=== PATIENT | female | born 1945 | race Caucasian/White ===

== ENCOUNTER 2021-09-12 09:13 | Outpatient (CLI) | payer MEDICARE ==
[2021-09-12] MEDS ORDERED: diphenhydrAMINE 50 MG/ML VIAL ONE (11:52)
[2021-09-12] MEDS ORDERED: methylPREDNISolone Sod Succ/PF 125 MG/2 ML VIAL ONE (11:52)
[2021-09-12] MEDS ORDERED: diphenhydrAMINE 25 MG CAP ONE (11:52)
[2021-09-12] MEDS ORDERED: Iopamidol 370 76% 100 ML VIAL ONE (12:02)
[2021-09-12] MEDS ORDERED: Iopamidol 370 76% 50 ML VIAL FS ONE (12:02)
[2021-09-12] MEDS ORDERED: EPINEPHrine 1 MG/10 ML Abboject SYRINGE ONE (12:10)
== END 2021-09-12 09:14 | disposition home or self-care (01) ==
LOC: NM 09:13
PROVIDERS: ATTEND Otolaryngology Plastic Surgery within the Head & Neck
DX: E83.52 Hypercalcemia (principal); E04.1 Nontoxic single thyroid nodule; D35.1 Benign neoplasm of parathyroid gland
CPT/HCPCS: 70492; 78070; 82565; A9500; J0171; J1200; J2930; Q9967

== ENCOUNTER 2021-09-12 12:13 | Emergency (ER) | payer MEDICARE | END 2021-09-12 14:07 | disposition home or self-care (01) | LOC: ERS 12:13 | DX: T78.40XA Allergy, unspecified, initial encounter (principal) | CPT/HCPCS: 99283 ==

== ENCOUNTER 2022-08-20 09:30 | Outpatient (CLI) | payer MEDICARE | END 2022-08-20 09:31 | disposition home or self-care (01) | LOC: CT 09:30 | PROVIDERS: ATTEND Otolaryngology Plastic Surgery within the Head & Neck | DX: E21.3 Hyperparathyroidism, unspecified (principal) | CPT/HCPCS: 78072; A9500 ==

== ENCOUNTER 2022-08-21 10:29 | Inpatient (IN) | payer MEDICARE ==
[2022-08-21 11:09] LABS: #Eosinphils 0.2 thou/uL (0.0-0.7); #Lymphocytes 0.4 thou/uL (1.20-3.40); #Monocytes 0.6 thou/uL (0.11-0.59); %Eosinophils 1.7 % (0.0-10.0); %Lymphocytes 3.3 % (21.0-51.0); %Monocytes 4.8 % (0.0-10.0); %Neutrophils 90.3 % (42.0-75.0); Hemoglobin 12.5 g/dL (12.0-16.0); Mean Corpuscular HGB CONC 31.8 g/dL (32.0-36.0); Mean Corpuscular Hemoglobin 31.3 pg (27.0-31.0); Mean Corpuscular Volume 98.5 fL (78.0-98.0); Mean Platelet Volume 8.7 fL (7.4-10.4); Platelet Count 230 thou/uL (130-400); Red Blood Cell (RBC) Count 4.01 mill/uL (4.20-5.40); White Blood Cell (WBC) Count 13.3 thou/uL (4.8-10.8)
[2022-08-21 11:20] LABS: PTT 28.1 sec (22.9-36.1); Prothrombin Time 13.2 sec (12.0-14.7)
[2022-08-21 11:22] LABS: ALT (SGPT) 10 U/L (8-55); AST (SGOT) 22 U/L (5-34); Albumin 4.1 g/dL (3.4-4.8); Alkaline Phosphatase 102 U/L (40-110); Anion Gap 16 mmol/L (10-20); BUN (Urea Nitrogen) 15 mg/dL (9.8-20.1); Bilirubin, Total 0.8 mg/dL (0.2-1.2); Calc. Creatinine Clearance 0 mL/min (70-130); Calcium 9.1 mg/dL (7.8-10.44); Carbon Dioxide 22 mmol/L (23-31); Chloride 103 mmol/L (98-107); Estimated GFR 52; Globulin 2.8 g/dL (2.4-3.5); Glucose 113 mg/dL (83-110); Potassium 4.2 mmol/L (3.5-5.1); Protein, Total 6.9 g/dL (5.8-8.1); Sodium 137 mmol/L (136-145)
[2022-08-21 12:43] LABS: Bacteria/HPF None Seen HPF (None Seen); Bilirubin Negative (Negative); Blood, Urine 2+ (Negative); Clarity Clear (Clear); Glucose, Urine (Dipstick) Normal (Negative); Ketone, Urine 20 mg/dL (Negative); Leukocyte Negative Leu/uL (Negative); Nitrite Negative (Negative); Protein, Urine (Dipstick) Negative (Neg-Trace); Squamous Epithelial 0-3 HPF (0-3); Urobilinogen Normal mg/dL (Less than 2); WBC/HPF 0-3 HPF (0-3); pH, Urine 6.5 (5.0-9.0)
[2022-08-21] MEDS ORDERED: Cefepime 2 GM VIAL ONE (13:19)
[2022-08-21 13:40] LABS: SARS-CoV-2 NAA Rapid Test Not Detected (NotDetected)
[2022-08-21] MEDS ORDERED: Vancomycin 1.5 GRAM/300 ML BAG 1.5 GM in Premix Bag 1 BAG IVPB SCH (13:45)
[2022-08-21] MEDS ORDERED: Acetaminophen 325 MG TAB ONE (14:02)
[2022-08-21] MEDS ORDERED: Acetaminophen 325 MG TAB PO PRN (14:08)
[2022-08-21] MEDS ORDERED: Guaifenesin DM 100-10/5 ML UDCUP PO PRN (14:08)
[2022-08-21] MEDS ORDERED: Ondansetron ODT 4 MG TAB PO PRN (14:08)
[2022-08-21] MEDS ORDERED: Ondansetron PF 4 MG/2 ML Vial IVP PRN (14:08)
[2022-08-21] MEDS ORDERED: Senokot S 8.6-50 MG TAB PO PRN (14:08)
[2022-08-21 15:43] VITALS: BMI 38.1
[2022-08-21] MEDS: Sodium Chloride 0.9% 1,000 ML IV SCH (16:48)
[2022-08-21] MEDS: Famotidine 20 MG TAB PO SCH (21:58)
[2022-08-21] MEDS: Loperamide HCl 2 MG CAP PO PRN (22:23)
[2022-08-22] MEDS: Sodium Chloride 0.9% 1,000 ML IV SCH ×2 (06:13→08:58)
[2022-08-22 06:23] LABS: #Eosinphils 0.1 thou/uL (0.0-0.7); #Lymphocytes 0.7 thou/uL (1.20-3.40); #Monocytes 1.1 thou/uL (0.11-0.59); #Neutrophils 9.7 thou/uL (1.40-6.50); %Basophils 0.3 % (0.0-1.0); %Eosinophils 1.1 % (0.0-10.0); %Lymphocytes 6.1 % (21.0-51.0); %Monocytes 9.6 % (0.0-10.0); %Neutrophils 82.8 % (42.0-75.0); Hemoglobin 11.3 g/dL (12.0-16.0); Mean Corpuscular HGB CONC 32.8 g/dL (32.0-36.0); Mean Corpuscular Hemoglobin 31.9 pg (27.0-31.0); Mean Corpuscular Volume 97.3 fL (78.0-98.0); Mean Platelet Volume 8.8 fL (7.4-10.4); Platelet Count 183 thou/uL (130-400); Red Blood Cell (RBC) Count 3.55 mill/uL (4.20-5.40); White Blood Cell (WBC) Count 11.7 thou/uL (4.8-10.8)
[2022-08-22 06:26] LABS: Anion Gap 15 mmol/L (10-20); BUN (Urea Nitrogen) 8 mg/dL (9.8-20.1); Calc. Creatinine Clearance 93 mL/min (70-130); Calcium 8.2 mg/dL (7.8-10.44); Carbon Dioxide 19 mmol/L (23-31); Chloride 104 mmol/L (98-107); Estimated GFR 74; Glucose 95 mg/dL (83-110); Potassium 3.2 mmol/L (3.5-5.1); Sodium 135 mmol/L (136-145)
[2022-08-22] MEDS ORDERED: Lorazepam 0.5 MG TAB PO PRN (07:44)
[2022-08-22] MEDS: Famotidine 20 MG TAB PO SCH ×2 (08:57→20:59)
[2022-08-22] MEDS ORDERED: FLU VACC QS2022-23(65YR UP)/PF 240 MCG/0.7 ML SYRINGE IM ONE (09:00)
[2022-08-22] MEDS ORDERED: Enoxaparin Sodium 40 MG/0.4 ML SYRINGE SC SCH (09:00)
[2022-08-22] MEDS ORDERED: Scopolamine 1.5 mg/72 hour Patch TD SCH (16:00)
[2022-08-22] MEDS: Loperamide HCl 2 MG CAP PO PRN (16:04)
[2022-08-22] MEDS ORDERED: Loperamide HCl 2 MG CAP PO PRN ×2 (16:45)
[2022-08-22] MEDS ORDERED: Potassium Chloride 20 MEQ TAB PO SCH (18:45)
[2022-08-22] MEDS: Amitriptyline HCl 25 MG TAB PO SCH (20:59)
[2022-08-22] MEDS: Atorvastatin Calcium 10 MG TAB PO SCH (20:59)
[2022-08-22] MEDS: Montelukast Sodium 10 mg Tablet PO SCH (20:59)
[2022-08-22] MEDS: Enoxaparin Sodium 100 MG/ML SYRINGE SC SCH (21:13)
[2022-08-23 06:39] LABS: #Eosinphils 0.6 thou/uL (0.0-0.7); #Lymphocytes 1.3 thou/uL (1.20-3.40); #Monocytes 1.2 thou/uL (0.11-0.59); #Neutrophils 8.4 thou/uL (1.40-6.50); %Basophils 0.3 % (0.0-1.0); %Eosinophils 5.2 % (0.0-10.0); %Lymphocytes 11.5 % (21.0-51.0); %Monocytes 10.2 % (0.0-10.0); %Neutrophils 72.7 % (42.0-75.0); Hemoglobin 11.6 g/dL (12.0-16.0); Mean Corpuscular HGB CONC 32.2 g/dL (32.0-36.0); Mean Corpuscular Hemoglobin 31.7 pg (27.0-31.0); Mean Corpuscular Volume 98.2 fL (78.0-98.0); Mean Platelet Volume 8.5 fL (7.4-10.4); Platelet Count 192 thou/uL (130-400); Red Blood Cell (RBC) Count 3.65 mill/uL (4.20-5.40); White Blood Cell (WBC) Count 11.6 thou/uL (4.8-10.8)
[2022-08-23 07:27] LABS: Anion Gap 13 mmol/L (10-20); BUN (Urea Nitrogen) 8 mg/dL (9.8-20.1); Calc. Creatinine Clearance 93 mL/min (70-130); Calcium 8.6 mg/dL (7.8-10.44); Carbon Dioxide 20 mmol/L (23-31); Chloride 105 mmol/L (98-107); Estimated GFR 74; Glucose 108 mg/dL (83-110); Potassium 3.4 mmol/L (3.5-5.1); Sodium 135 mmol/L (136-145)
[2022-08-23] MEDS: Multivit, Therapeutic 1 TAB PO SCH (08:24)
[2022-08-23] MEDS: Famotidine 20 MG TAB PO SCH ×2 (08:25→20:31)
[2022-08-23] MEDS: Meloxicam 15 MG TAB PO SCH (08:25)
[2022-08-23] MEDS: Enoxaparin Sodium 100 MG/ML SYRINGE SC SCH (09:47)
[2022-08-23] MEDS: methylPREDNISolone Sod Succ 40 MG VIAL IVP SCH ×3 (10:34→21:26)
[2022-08-23] MEDS ORDERED: Diphenoxylate HCl/Atropine Tablet PO PRN (14:32)
[2022-08-23] MEDS ORDERED: Diphenoxylate HCl/Atropine Tablet PO SCH (14:45)
[2022-08-23] MEDS: Montelukast Sodium 10 mg Tablet PO SCH (20:31)
[2022-08-23] MEDS: Amitriptyline HCl 25 MG TAB PO SCH (20:31)
[2022-08-23] MEDS: Atorvastatin Calcium 10 MG TAB PO SCH (20:31)
[2022-08-24] MEDS: methylPREDNISolone Sod Succ 40 MG VIAL IVP SCH ×2 (04:49→09:26)
[2022-08-24 06:39] LABS: #Lymphocytes 0.7 thou/uL (1.20-3.40); #Monocytes 0.3 thou/uL (0.11-0.59); #Neutrophils 8.4 thou/uL (1.40-6.50); %Basophils 0.1 % (0.0-1.0); %Eosinophils 0.1 % (0.0-10.0); %Monocytes 3.6 % (0.0-10.0); %Neutrophils 89.3 % (42.0-75.0); Hemoglobin 11.9 g/dL (12.0-16.0); Mean Corpuscular HGB CONC 31.8 g/dL (32.0-36.0); Mean Corpuscular Hemoglobin 30.5 pg (27.0-31.0); Mean Corpuscular Volume 95.9 fL (78.0-98.0); Mean Platelet Volume 9.1 fL (7.4-10.4); Platelet Count 249 thou/uL (130-400); RBC Distribution Width 11.1 % (11.5-14.5); Red Blood Cell (RBC) Count 3.91 mill/uL (4.20-5.40); White Blood Cell (WBC) Count 9.4 thou/uL (4.8-10.8)
[2022-08-24 07:00] LABS: Anion Gap 15 mmol/L (10-20); BUN (Urea Nitrogen) 19 mg/dL (9.8-20.1); Calc. Creatinine Clearance 62 mL/min (70-130); Calcium 9.2 mg/dL (7.8-10.44); Carbon Dioxide 21 mmol/L (23-31); Chloride 105 mmol/L (98-107); Estimated GFR 46; Glucose 171 mg/dL (83-110); Potassium 3.5 mmol/L (3.5-5.1); Sodium 137 mmol/L (136-145)
[2022-08-24 07:56] VITALS: BP 119/59; TEMP 97.3
[2022-08-24] MEDS: Multivit, Therapeutic 1 TAB PO SCH (08:46)
[2022-08-24] MEDS: Famotidine 20 MG TAB PO SCH (08:46)
[2022-08-24] MEDS: Meloxicam 15 MG TAB PO SCH (08:47)
[2022-08-24] MEDS ORDERED: Enoxaparin Sodium 40 MG/0.4 ML SYRINGE SC SCH (09:00)
== END 2022-08-24 13:30 | disposition home or self-care (01) | DRG 392 ==
LOC: ERS 10:29 → T4-A 13:34
PROVIDERS: ADMIT Internal Medicine; ATTEND Internal Medicine
DX: K52.29 Other allergic and dietetic gastroenteritis and colitis (principal); E87.1 Hypo-osmolality and hyponatremia; R65.10 Systemic inflammatory response syndrome (SIRS) of non-infectious origin without acute organ dysfunction; Z20.822 Contact with and (suspected) exposure to COVID-19; J40 Bronchitis, not specified as acute or chronic; E78.00 Pure hypercholesterolemia, unspecified; I10 Essential (primary) hypertension; E87.6 Hypokalemia; E73.9 Lactose intolerance, unspecified; F41.9 Anxiety disorder, unspecified; R29.6 Repeated falls; K21.9 Gastro-esophageal reflux disease without esophagitis; Z91.041 Radiographic dye allergy status; Z79.899 Other long term (current) drug therapy; Z88.0 Allergy status to penicillin; Z98.890 Other specified postprocedural states; Z87.891 Personal history of nicotine dependence; R13.19 Other dysphagia; E21.3 Hyperparathyroidism, unspecified
CPT/HCPCS: 36415; 36416; 70450; 70551; 71045; 78072; 78451; 80048; 80053; 81003; 81015; 83516; 83605; 84146; 84443; 84484; 85025; 85379; 85610; 85730; 87040; 87086; 87324; 87449; 93005; 94640; 94760; 95816; 95819; 95957; 96361; 96374; A9500; A9540; J0692; J1650; J2405; J2920; J3370; J7050; J7620

== ENCOUNTER 2022-08-26 09:51 | Outpatient (CLI) | payer MEDICARE ==
[2022-08-26] MEDS ORDERED: Iopamidol 370 76% 50 ML VIAL FS ONE (10:24)
== END 2022-08-26 09:52 | disposition home or self-care (01) ==
LOC: CT 09:51
PROVIDERS: ATTEND Otolaryngology Plastic Surgery within the Head & Neck
DX: E21.3 Hyperparathyroidism, unspecified (principal); E04.1 Nontoxic single thyroid nodule
CPT/HCPCS: 70492; 82565; Q9967

== ENCOUNTER 2023-04-26 07:52 | Outpatient (CLI) | payer MEDICARE | END 2023-04-26 07:53 | disposition home or self-care (01) | LOC: NM 07:52 | PROVIDERS: ATTEND Otolaryngology Plastic Surgery within the Head & Neck | DX: E21.3 Hyperparathyroidism, unspecified (principal); E07.9 Disorder of thyroid, unspecified | CPT/HCPCS: 70490; 78072; A9500 ==

== ENCOUNTER 2023-09-08 11:16 | Outpatient (CLI) | payer MEDICARE | END 2023-09-08 11:17 | disposition home or self-care (01) | LOC: RAD 11:16 | PROVIDERS: ATTEND Internal Medicine Critical Care Medicine | DX: R06.00 Dyspnea, unspecified (principal) | CPT/HCPCS: 71046 ==